=== PATIENT | male | born 1970 | race Caucasian/White ===

== ENCOUNTER 2022-08-14 16:10 | Outpatient (CLI) | payer BC, SELFPAY ==
--- NOTE | ~2022-08-14 | MR_ITS ---
MRI of the left shoulder Technique: Axial proton-density fat-sat images, coronal proton density fat-sat and T2 fat-sat images, and sagittal T1-weighted and T2 fat-sat images were acquired. Clinical History: Pain Findings: Suggestion of prior subacromial decompression. Coracoclavicular, coracoacromial, and coraco humeral ligaments appear intact. There is probable prior repair of the distal supraspinatus tendon. There is moderate tendinosis and/o r postoperative signal the distal supraspinatus tendon, without definite partial or full-thickness re current tear. Infraspinatus tendon is intact, with mild to moderate tendinosis. Subscapularis tendon is intact, with moderate tendinosis. Suspected prior biceps tenodesis. No definite, detached labral tear evident. There is mild irregularity of the anterior labrum. Inferior glenohumeral ligament is intact, mildly hyperintense. No degenerative change or effusion of the glenohumeral joint. No fluid distention of the subacromial/subdeltoid bursa. No muscle atrophy or edema. Impression: Probable prior supraspinatus tendon repair and prior biceps tenodesis. No recurrent partial or full-t hickness rotator cuff tear evident. Rotator cuff tendinosis and/or postoperative signal, as noted abo ve. Suspected prior subacromial decompression. Irregularity of the anterior labrum could reflect postoperative change or degenerative attenuation. Reviewed, dictated and finalized at [facility]. [employer] Impression: Probable prior supraspinatus tendon repair and prior biceps tenodesis. No recur rent partial or full-thickness rotator cuff tear evident. Rotator cuff tendinos is and/or postoperative signal, as noted above. Suspected prior subacromial decompression. Irregularity of the anterior labrum could reflect postoperative change or degen erative attenuation.
== END 2022-08-14 16:11 | disposition home or self-care (01) ==
LOC: ANHIMG 16:12
PROVIDERS: PCP Family Medicine; Visit Provider Nurse Practitioner Gerontology
DX: M25.512 Pain in left shoulder (principal); R93.6 Abnormal findings on diagnostic imaging of limbs
CPT/HCPCS: 73221

== ENCOUNTER 2022-12-26 01:50 | Day surgery (SDC) | payer BC, SELFPAY ==
[2022-12-18 08:33] VITALS: BMI 30.5
--- NOTE | 2022-12-18 14:43 | SUR.PREOP ---
Report to the Outpatient Waiting Room, entrance under the green pavilion located off [facility], at time 12/26/22 on date 0830. Planned Procedure Time: 1030. Time changes happen often and if your time is changed the preop area will call you the afternoon before. - You and your visitor will be asked to self-screen and do not enter if you have any COVID symptoms. - A mask is optional within the hospital at this time. Patients may have clear liquids (water, carbonated beverages, clear teas, apple juice) until 3 hours prior to surgery with a maximum of 20 ounces. - No food from midnight until time of surgery - Infants may have breast milk until 4 hours before surgery, formula 6 hours prior to surgery. - Children will be allowed to drink immediately following surgery. If applicable, please bring a bottle or sippy cup to assist with drinking. Juice, water, soda, and popsicles are readily available. For infants on formula, please bring formula the day of surgery. Pacifiers are allowed. Take the following medications with a SIP of water the morning of surgery: N/A DO NOT STOP ANY OF YOUR OTHER PRESCRIPTION MEDICATIONS PRIOR TO SURGERY ?EXCEPT THE FOLLOWING Medications to discontinue per physician N/A Date to take last dose N/A Please no make-up, nail montserratian, hairspray, perfume, deodorant, or body powder the day of surgery. No jewelry (including any body piercings) or valuables the day of surgery, leave them at home. Please take a shower or bath the night before, or the morning of, surgery with an antibacterial soap. Wear comfortable, loose fitting clothing. Children are encouraged to wear pajamas. - Jewelry must be removed prior to entering the operating room. Rings and piercings that are not removed may be cut off. - The hospital will not accept responsibility for valuables. - Please leave all valuables, including medications, at home the day of surgery. If you are going home after surgery, a licensed bulk tank driver must drive you home. - NO public transportation without another adult if you receive anesthesia. - We recommend that an adult stay with you for 24 hours following discharge. - We also recommend that you do not drive, make important decision, drink alcoholic beverages, or take any drugs that were not prescribed by your health care provider for at least 24 hours after your discharge time. For Pediatric surgeries, we recommend two adults accompany the child home. Follow any additional instructions given to you from your surgeon. If you or anyone in your household have experienced Covid symptoms in the past week, please notify your surgeon or the nurse liaison at the phone number below for possible testing. Telephone instructions given to BETZY and asked if any additional questions and then verbalized understanding. Patient advised to call surgeon office or pre surgery nurse liaison [phone] if any additional questions.
--- NOTE | 2022-12-26 07:19 | WPDHPUPDATE1 ---
History and Physical Update Update Date/Time: 12/26/22 07:19 History and Physical has been reviewed, including an updated exam of the patient. There are NO changes in the patient's condition. Risks, benefits, and alternatives have been discussed and questions answered. Patient agrees to proceed with procedure.
[2022-12-26 08:35] VITALS: BMI 30.9
[2022-12-26] MEDS: LACTATED RINGERS 1,000 ML 30 ML IV CONT ×2 (09:05→12:57)
[2022-12-26] MEDS: ACETAMINOPHEN 500 MG TABLET 1000 MG PO (09:13)
[2022-12-26] MEDS: KETOROLAC 15 MG/ML VIAL (*BKC) IV PUSH (09:14)
[2022-12-26 09:55] VITALS: BP 124/91; PULSE 70; RESP 18; TEMP 36.7; O2SAT 98
--- NOTE | 2022-12-26 10:21 | WPDANESEPPF ---
Anes - Initial Pre Proc Eval Procedure: Operation Date: 12/26/22 10:30 Proposed Procedures p Left Shoulder Arthroscopy, with Rotator Cuff Repair - Austin Marquez MD Date/Time: 12/26/22 10:21 Surgeon: Austin Marquez MD Pre Op Diagnosis: left Rotator Cuff tear with tendinopathy Patient Data Age: 52 Gender: M Height: 1.83 m Weight: 103.5 kg Last Vital Signs Temp 36.7 C 12/26/22 09:55 Pulse 70 12/26/22 09:55 Resp 18 12/26/22 09:55 BP 124/91 H 12/26/22 09:55 Pulse Ox 98 12/26/22 09:55 O2 Del Method Room Air 12/26/22 09:55 Allergies Allergy/AdvReac Type Severity Reaction Status Date / Time No Known Allergies Allergy Unknown Verified 12/26/22 09:48 Home Medications Medication Instructions Recorded Confirmed Type No Home Medications 12/18/22 12/26/22 History Patient hx anesthesia problems: none Family hx anesthesia problems: none Results Review: All pre-operative results and documents have been reviewed as part of the pre-operative evaluation. [facility] Past Medical History Medical History History of fracture of phalanx of finger Surgical History Surgical History History of shoulder surgery Bilateral (Pt is unsure of specific dates/doctors) Family History Family History Father Hypertension Family history of elevated blood lipids Other Diabetes mellitus Heart disease Social History Social History Social History: Smoking status: Never smoker Second hand tobacco smoke exposure: No Alcohol intake: current Substance use: never Substance use type: marijuana Lack of Transportation: No Lack of Food: Never True Current Housing: I Have Housing Concerned About Future Housing: No Difficulty Paying Gas/Electric Bills: No Difficulty Paying for Meds: No Currently Unemployed: Decline to Answer Education: Associate Degree Difficulty w/ Childcare or Family Care: No Living arrangements: with family Occupation/Education: occupation Gender identity (if verbalized by the patient): Male Sexual Orientation (if Verbalized by the Patient): Straight or Heterosexual Spiritual care concerns: No Anes - Eval Final PreProcedure Day of Procedure 12/26/22 10:21 Patient weight: obese Heart: regular rate and rhythm Lungs: clear to auscultation Airway: Mallampati scale class II Neurological: alert and oriented Last oral intake: >/= 8 hours ASA classification: II Emergent: no Anesthetic plan: proceed Anesthesia type and monitoring: general ETT and standard monitoring Results Review: All pre-operative results and documents have been reviewed as part of the pre-operative evaluation. Informed Consent: The patient's anesthetic plan and its attendant risks and benefits were discussed with the patient/family/POA. Questions were solicited and answers provided to the satisfaction of the patient/family/POA.
--- NOTE | 2022-12-26 10:21 | WPDANESPNB ---
Anes - Peripheral Nerve Block Date/Time: 12/26/22 10:21 I have discussed with the patient/family/POA the placement of a peripheral nerve block for post-operative pain management, including associated risks, benefits, complications, and side effects. Alternative methods of post-operative analgesia were detailed. Questions were solicited and answers provided to the satisfaction of the patient/family/POA. Time-Out: A pre-procedural Time-Out was completed immediately before starting the procedure and confirmed: Patient Identification, Site, Procedure, Patient Position and the Availability of Requisite Equipment. Clinical Indications: Acute post-operative pain management requested by the operative surgeon. Nerve Block Insertion Note Anes-nerve block: interscalene left Patient position: supine Skin prep: chlorhexidine Needle: 22 gauge, stimulating, insulated echogenic needle. Needle length: 50 mm Technique: ultrasound Injectate: bupivacaine 0.5% with epi 5 mcg/ml (30cc- no epi) Observations: tolerated well Complications: none Procedure start time:: 1013 Procedure end time:: 101
[2022-12-26] MEDS: ceFAZolin 2 GM/D5W 50 ML 2 GM/50 ML BAG IVPB (10:42)
[2022-12-26 12:57] VITALS: BP 138/89; PULSE 83; RESP 15; TEMP 36.6; O2SAT 100
--- NOTE | 2022-12-26 13:03 | P.OP_ITS ---
Procedure Note - Detailed Date of Procedure 12/26/22 Pre-op Diagnosis Left Rotator Cuff tear, s/p previous rotator cuff repair and biceps tenodesis. Post-op Diagnosis Same Procedure Performed Left shoulder Arthroscopic rotator cuff repair Surgeon Austin Marquez MD Anesthesia General and Regional ( interscalene block) Findings Supraspinatus tear at the site of previous 1 anchor repair. Sutures were partially intact but the tear extended posteriorly. Small to medium size tear defect created after minimal debridement. Single medial all suture anchor with 4 suture limbs passed each into the supraspinatus. All 4 sutures brought laterally to a SwiveLock anchor. The tissue quality was reasonable but given the revision nature of the surgery it was elected to place a collagen tissue implant over the supraspinatus tendon suture repair. Description of Procedure Preoperative antibiotics were given. An interscalene block was administered in the preoperative area. The patient was bought brought to the operating room. A general anesthetic was administered. The patient was carefully positioned in the beach chair position. The head and neck were carefully positioned. The non operative extremity was also carefully positioned. The shoulder was prepped and draped in the usual sterile fashion. Examination was performed. Standard posterior and anterior arthroscopic portals were established. Inflow achieved with the arthroscopic pump using saline and epinephrine. The glenohumeral joint was carefully inspected. The articular cartilage appeared normal. The superior labrum showed evidence of prior debridement and biceps tenodesis. The subs capularis had only very subtle partial splitting but appeared quite robust. The supraspinatus defect was noted and was complete. He was fairly small and the anterior sutures were partially intact. Tear appeared to extend more posteriorly approximately 8-10 mm. Attention was turned to the subacromial space. The previous bursal scar tissue was removed as necessary for visualization. There was a good space in the subacromial area. No evidence of external impingement was present. The rotator cuff and footprint were lightly debrided. The tear configuration was carefully assessed. At this point it was elected to do a double row repair with a single anchor medial and a single ankle lateral. Four points of fixation with bring the somewhat wide tear back to the small footprint. The tear appeared quite anatomic without significant tension. The Regeneten tissue implant was then deployed over this area. Several VICENTE anchors were placed medially and 3 peek anchors were placed laterally in the bone. The arthroscopic instruments were removed. The wounds were closed with 3-0 Monocryl subcuticular suture and steri strips. There were no complications. A sling was applied and the patient brought to the recovery room. Implants Arthrex FiberTak all suture rotator cuff anchor. SwiveLock anchor. Regeneten collagen implant with multiple VICENTE tendon anchors and 3 peek anchors for bone. Estimated Blood Loss -5.0 Pathology None sent Complications No immediate complications Condition Stable Disposition PACU [facility] Billing Surgery - Charge Forward: Surgery Billing
[2022-12-26 13:10] VITALS: BP 139/78; PULSE 76; RESP 16; O2SAT 100
[2022-12-26 13:25] VITALS: BP 134/85; PULSE 79; RESP 18; O2SAT 97
[2022-12-26 13:36] VITALS: BP 138/103; PULSE 74
[2022-12-26 14:05] VITALS: BP 136/92; PULSE 70
== END 2022-12-26 14:28 | disposition home or self-care (01) ==
PROVIDERS: PCP Family Medicine; Visit Provider Orthopaedic Surgery
PROC: (CPT 29805; principal; 2022-12-26 10:30)
DX: S46.012A Strain of muscle(s) and tendon(s) of the rotator cuff of left shoulder, initial encounter (principal); X50.0XXA Overexertion from strenuous movement or load, initial encounter; G89.18 Other acute postprocedural pain; E66.9 Obesity, unspecified; Z68.30 Body mass index [BMI] 30.0-30.9, adult
CPT/HCPCS: 29827; 64415; A4565; A9270; C1713; J0171; J0690; J1100; J1885; J2250; J2405; J2704; J3010; J7120

== ENCOUNTER 2024-07-03 09:58 | Emergency (ER) | payer BC, SELFPAY ==
[2024-07-03] VITALS (8 sets, daily range): BP systolic 124–162; BP diastolic 95–113; PULSE 69–87; RESP 14–19; TEMP 36.6; O2SAT 93–97
--- NOTE | ~2024-07-03 | XR_ITS ---
EXAMINATION: XR chest 1V portable DATE: 07/03/2024 10:15 INDICATION: Chest pain. TECHNIQUE: A single frontal view of the chest was obtained. COMPARISON: Chest 2 views 04/15/2007 FINDINGS: There is no pneumonia, pleural effusion, or pneumothorax. The heart size is normal. IMPRESSION: 1. No acute cardiopulmonary disease. Reviewed, dictated and finalized at location [facility]. [facility]
--- NOTE | 2024-07-03 10:07 | ECG_ITS ---
Test Date: 2024-07-03 10:19:40 Measurements Intervals [place] Rate: 83 P: 67 NM: 174 QRS: -1 QRSD: 116 T: 6 QT: 363 QTc: 428 Interpretive Statements SINUS RHYTHM INCOMPLETE RIGHT BUNDLE BRANCH BLOCK [90+ ms QRS DURATION, TERMINAL R IN V1/V2, 40+ ms S IN I/aVL/V4/V5/V6] MODERATE T-WAVE ABNORMALITY, CONSIDER ANTEROLATERAL ISCHEMIA [-0.1+ mV T-WAVE IN V3-V6] No previous ECG available for comparison Electronically Signed On 07-04-2024 12:20:31 INTERNAL AUDIT DIRECTOR by Sam Glass M.D.
[2024-07-03 10:20] LABS: Basophils Absolute Auto 0.05 K/mm3 (0.00-0.10); Basophils Percent Auto 0.6 % (0.0-1.0); Eosinophils Absolute Auto 0.11 K/mm3 (0.02-0.50); Eosinophils Percent Auto 1.3 % (1.0-6.0); Hematocrit 46.4 % (40.0-54.0); Hemoglobin 16.3 g/dL (14.0-18.0); Immature Granulocyte Absolute 0.03 K/mm3 (0.00-0.00); Immature Granulocyte Percent A 0.4 % (0.0-0.0); Lymphocytes Absolute Auto 2.38 K/mm3 (1.10-4.50); Mean Corpuscular HGB Conc 35.1 g/dL (32-36); Mean Corpuscular Volume 93.9 fL (78.0-102.0); Mean Platelet Volume 10.6 fl (8.7-11.0); Monocytes Absolute Auto 0.96 K/mm3 (0.10-0.90); Monocytes Percent Auto 11.3 % (2.0-11.0); Neutrophils Absolute Auto 4.96 K/mm3 (1.70-7.20); Neutrophils Percent Auto 58.4 % (50.0-70.0); Platelet Count Result 232 K/mm3 (150-420); Red Blood Count 4.94 M/mm3 (4.70-6.10); Red Cell Distribution Width 12.7 % (11.6-14.4); White Blood Count 8.5 K/mm3 (4.8-10.8)
[2024-07-03 10:35] LABS: D Dimer 0.26 mg/L (0.19-0.50); Partial Thromboplastin Time 25.6 Sec (23.9-30.70); Prothrombin Time 10.7 Seconds (9.50-12.1)
[2024-07-03 10:43] LABS: Alanine Aminotransferase 45 U/L (16-63); Albumin Level 3.7 g/dL (3.4-5.0); Alkaline Phosphatase 84 U/L (46-116); Anion Gap 14 mmol/L (4-12); Aspartate Amino Transferase 35 U/L (15-37); Bilirubin,Total 0.5 mg/dL (0.00-1.00); Blood Urea Nitrogen 14 mg/dL (7-18); Calcium 9.5 mg/dL (8.5-10.1); Carbon Dioxide 23 mmol/L (21-32); Chloride 101 mmol/L (98-108); Estimated CRCL calculation 94 ml/min; Estimated Glomerular Filt Rate > 60; Glucose 102 mg/dL (70-99); Lipase 44 U/L (16-77); NT Pro B Type Natriuretic Pept 31 pg/mL (0-125); Osmolality Calculated 286 mOsm/kg (285-295); Potassium 3.5 mmol/L (3.5-5.1); Sodium 138 mmol/L (136-145); Total Protein 7.3 g/dL (6.4-8.2); Troponin I < 4.0 ng/L (0.00-60.4)
--- NOTE | 2024-07-03 10:46 | ED_ITS ---
HPI - Chest Pain General Chief Complaint: Chest Pain Stated Complaint: chest pain Time Seen by Provider: 07/03/24 10:07 Source: patient Mode of arrival: ambulatory Limitations: no limitations History of Present Illness HPI narrative: this is a 53-year-old male with no significant past medical history nonsmoker no family history of heart disease presents with a 2 day episode of chest tightness and uncomfortable feeling in his left chest area with no radiation no diaphoresis no shortness of breath no nausea or vomiting. Patient had this discomfort yesterday and lasting several hours and also had some discomfort this morning. Patient has no history of hypertension, but blood pressure initially was 162/113 does appear anxious. complaint: chest discomfort Onset (ago): day(s) Timing of current episode: episodic Prior episodes: Yes Onset: during rest Pain location: left chest Pain radiation: none Severity: similar to previous episodes Related Data Home Medications Medication Instructions Recorded Confirmed No Home Medications 02/07/23 03/21/23 Allergies Allergy/AdvReac Type Severity Reaction Status Date / Time No Known Allergies Allergy Unknown Verified 01/23/24 07:54 Review of Systems Review of Systems: All systems reviewed & are unremarkable except as noted in HPI and below PMFSH Past Medical History Medical History History of fracture of phalanx of finger Surgical History Surgical History History of repair of left rotator cuff (~12/26/22) History of shoulder surgery Bilateral (Pt is unsure of specific dates/doctors) Family History Family History Father Hypertension Family history of elevated blood lipids Other Diabetes mellitus Heart disease Social History Social History Social History: Smoking status: Never smoker Second hand tobacco smoke exposure: No Alcohol intake: current Drinks per week: 5 Substance use: current Substance use type: marijuana Do You Feel Safe in your Home?: Yes Lack of Transportation: No Lack of Food: Never True Current Housing: I Have Housing Concerned About Future Housing: No Difficulty Paying Gas/Electric Bills: No Difficulty Paying for Meds: No Currently Unemployed: YES Education: Associate Degree Difficulty w/ Childcare or Family Care: No Living arrangements: with family Occupation/Education: retired Gender identity (if verbalized by the patient): Male Sexual Orientation (if Verbalized by the Patient): Straight or Heterosexual Spiritual care concerns: No Exam Const: General: healthy appearing and no acute distress Nutritional Appearance: well nourished Orientation/consciousness: patient oriented x3 Limitations: no limitations Eyes: Conjunctivae: conjunctivae normal Pupils: Equal, round and reactive pupils present Neck: Neck: normal visual inspection Chest: Chest palpation & inspection: normal inspection of the chest Resp: Effort & Inspection: normal respiratory effort Auscultation: clear to auscultation bilaterally Cardio: Rate: regular rate Rhythm: regular rhythm GI: GI Palp: Yes Soft to palpation Auscultation: normal bowel sounds Back/Spine/Pelvis: Back: no CVA tenderness Skin: General skin exam: normal color Rashes: no rashes Neuro: General: patient oriented x3, moves all extremities and no meningeal signs Extrem: General: normal to inspection, no clubbing, cyanosis or edema and no pedal edema Psych: Affect: Anxious affect present Course Course Emergency Course: Patient blood pressure currently 136/99 EKG shows a no ST or T changes has an incomplete right bundle branch block, troponin negative D-dimer negative chest x-ray reviewed which shows no acute cardiopulmonary abnormalities. Vital Signs Vital signs: Vital Signs Temperature 36.6 C 07/03/24 10:02 Pulse Rate 87 07/03/24 10:02 Respiratory Rate 15 07/03/24 10:02 Blood Pressure 162/113 H 07/03/24 10:02 Pulse Oximetry 97 07/03/24 10:02 Oxygen Delivery Room Air 07/03/24 10:02 Temperature 36.6 C 07/03/24 10:02 Pulse Rate 87 07/03/24 10:02 Respiratory Rate 15 07/03/24 10:02 Blood Pressure 162/113 H 07/03/24 10:02 Pulse Oximetry 97 07/03/24 10:02 Oxygen Delivery Room Air 07/03/24 10:02 MDM - Chest Pain Lab Data 07/03/24 10:16 07/03/24 10:16 Labs: Lab Results 07/03/24 Range/Units 10:16 WBC 8.5 (4.8-10.8) K/mm3 RBC 4.94 (4.70-6.10) M/mm3 Hgb 16.3 (14.0-18.0) g/dL Hct 46.4 (40.0-54.0) % MCV 93.9 (78.0-102.0) fL MCH 33.0 H (27.0-31.0) pg MCHC 35.1 (32-36) g/dL RDW 12.7 (11.6-14.4) % Plt Count 232 (150-420) K/mm3 MPV 10.6 (8.7-11.0) fl Immature Gran % (Auto) 0.4 H (0.0-0.0) % Neut % (Auto) 58.4 (50.0-70.0) % Lymph % (Auto) 28.0 (18.0-42.0) % [place] % (Auto) 11.3 H (2.0-11.0) % Eos % (Auto) 1.3 (1.0-6.0) % Baso % (Auto) 0.6 (0.0-1.0) % Lymph # (Auto) 2.38 (1.10-4.50) K/mm3 [place] # (Auto) 0.96 H (0.10-0.90) K/mm3 Eos # (Auto) 0.11 (0.02-0.50) K/mm3 Baso # (Auto) 0.05 (0.00-0.10) K/mm3 Abs Immat Gran (auto) 0.03 H (0.00-0.00) K/mm3 Absolute Neuts (auto) 4.96 (1.70-7.20) K/mm3 Absolute Nucleated RBC 0.00 (0.00-0.00) K/mm3 Nucleated RBC % 0.0 (0-0.0) % PT 10.7 (9.50-12.1) Seconds INR 1.0 APTT 25.6 (23.9-30.70) Sec D-Dimer 0.26 (0.19-0.50) mg/L Sodium 138 (136-145) mmol/L Potassium 3.5 (3.5-5.1) mmol/L Chloride 101 (98-108) mmol/L Carbon Dioxide 23 (21-32) mmol/L Anion Gap 14 H (4-12) mmol/L BUN 14 (7-18) mg/dL Creatinine 1.02 (0.70-1.30) mg/dL Estim Creat Clear Calc 94 ml/min Estimated GFR > 60 (59 - ) Glucose 102 H (70-99) mg/dL Calculated Osmolality 286 (285-295) mOsm/kg Calcium 9.5 (8.5-10.1) mg/dL Total Bilirubin 0.5 (0.00-1.00) mg/dL AST 35 (15-37) U/L ALT 45 (16-63) U/L Alkaline Phosphatase 84 (46-116) U/L Troponin I < 4.0 (0.00-60.4) ng/L NT-Pro-B Natriuret Pep 31 (0-125) pg/mL Total Protein 7.3 (6.4-8.2) g/dL Albumin 3.7 (3.4-5.0) g/dL Lipase 44 (16-77) U/L Critical Care Time Critical Care Time Critical Care Time: No Discharge Plan Discharge Clinical Impression: Atypical chest pain Patient Disposition: Home, Self-Care Condition: Stable Instructions: Antibiotic Form, Chest Pain (ED) Additional Instructions: Advise patient to go to the nearest emergency department if symptoms should recur otherwise follow up primary within 1 week for further evaluation and treatment. Prescriptions: No Action No Home Medications Follow-up/Referrals: Pamela Decker MD [Primary Care Provider] -
== END 2024-07-03 11:05 | disposition home or self-care (01) ==
PROVIDERS: Emergency Provider Emergency Medicine; PCP Family Medicine
DX: R07.89 Other chest pain (principal)
CPT/HCPCS: 36415; 71045; 80053; 83690; 83880; 84484; 85025; 85380; 85610; 85730; 93005; 99284

== ENCOUNTER 2024-07-19 08:17 | Outpatient (CLI) | payer BC, SELFPAY ==
[2024-07-19 08:31] LABS: Basophils Absolute Auto 0.06 K/mm3 (0.00-0.10); Eosinophils Absolute Auto 0.12 K/mm3 (0.02-0.50); Eosinophils Percent Auto 2.1 % (1.0-6.0); Hematocrit 46.7 % (40.0-54.0); Hemoglobin 16.3 g/dL (14.0-18.0); Immature Granulocyte Absolute 0.02 K/mm3 (0.00-0.00); Immature Granulocyte Percent A 0.3 % (0.0-0.0); Lymphocytes Absolute Auto 2.32 K/mm3 (1.10-4.50); Lymphocytes Percent Auto 40.5 % (18.0-42.0); Mean Corpuscular HGB Conc 34.9 g/dL (32-36); Mean Corpuscular Hemoglobin 32.8 pg (27.0-31.0); Mean Platelet Volume 10.1 fl (8.7-11.0); Monocytes Absolute Auto 0.71 K/mm3 (0.10-0.90); Monocytes Percent Auto 12.4 % (2.0-11.0); Neutrophils Percent Auto 43.7 % (50.0-70.0); Platelet Count Result 263 K/mm3 (150-420); Red Blood Count 4.97 M/mm3 (4.70-6.10); Red Cell Distribution Width 12.7 % (11.6-14.4); White Blood Count 5.7 K/mm3 (4.8-10.8)
[2024-07-19 08:40] LABS: Hemoglobin A1C 5.3 % (<5.7)
[2024-07-19 09:03] LABS: Alanine Aminotransferase 64 U/L (16-63); Albumin Level 3.8 g/dL (3.4-5.0); Alkaline Phosphatase 80 U/L (46-116); Anion Gap 11 mmol/L (4-12); Aspartate Amino Transferase 37 U/L (15-37); Bilirubin,Total 0.8 mg/dL (0.00-1.00); Blood Urea Nitrogen 22 mg/dL (7-18); Calcium 9.7 mg/dL (8.5-10.1); Carbon Dioxide 30 mmol/L (21-32); Chloride 96 mmol/L (98-108); Cholesterol 231 mg/dL (0-200); Estimated Glomerular Filt Rate > 60; Glucose 108 mg/dL (70-99); HDL Direct 71 mg/dL (40-60); LDL Cholesterol Calculated 146 mg/dL (<130); Osmolality Calculated 288 mOsm/kg (285-295); Potassium 4.4 mmol/L (3.5-5.1); Sodium 137 mmol/L (136-145); Triglycerides 72 mg/dL (0-150)
[2024-07-24 12:14] LABS: PSA, Free 0.4 ng/mL; Percent Free Prostate Spec Ag 20 % (calc) (>25)
== END 2024-07-19 08:18 | disposition home or self-care (01) ==
PROVIDERS: PCP Family Medicine; Visit Provider Family Medicine
DX: Z00.00 Encounter for general adult medical examination without abnormal findings (principal); R73.09 Other abnormal glucose; Z12.5 Encounter for screening for malignant neoplasm of prostate
CPT/HCPCS: 36415; 80053; 80061; 83036; 84153; 84154; 85025